=== PATIENT | male | born 1985 | race Two or more races ===

== ENCOUNTER 2024-02-09 14:35 | Outpatient (AMB) | payer OTHER, SELFPAY ==
--- NOTE | 2024-02-09 14:48 | MHC.PC.OV ---
Vital Signs 02/09/24 14:56 Height 5 ft 10 in Weight 172 lb BMI 24.7 BP 122/74 Blood Pressure Location Rt brachial Position Sitting Pulse 71 Pulse Source Pulse Oximeter Pulse Oximetry (%) 98 Intake Visit Reasons: ANNUAL PE Intake Note: pt is here for PE Motion Picture Narrator Required: No Allergies acetaminophen [From Tylenol] Allergy (Mild, Verified 02/09/24 14:57) Rash aspirin [ASA] Allergy (Unknown, Verified 02/09/24 14:57) SWELLING Penicillins [PENICILLINS] Allergy (Unknown, Verified 02/09/24 14:57) SWELLING enviromental allergies Allergy (Unknown, Uncoded 02/09/24 14:51) Unknown Medication List - [facility] Known Home Meds Tobacco use date assessed: 02/09/24 Dental Screening Dental Screen Date: 02/09/24 Did you have a dental visit in the last 12 months?: Yes Did you have a dental problem in the last 6 months where you did not have access to dental care?: No Was dental information given to patient?: Patient has dentist HPI ANNUAL PE HPI Details History of Present Illness Pt is here for PE. In addition, the patient reported issues with cerumen impaction in the right ear. He attempted to remove the earwax himself using water irrigation but felt discomfort and encountered difficulties in cleaning the ear effectively. The patient expressed interest in having the ear professionally irrigated and understood that there might be additional costs involved. Health Maintenance - Advised against smoking cigarettes. Social History Review of Systems - Ears: Reports difficulty with earwax impaction. denies any cp, sob, n/v, fevers, chills, numbness tingling, blood in stool, constipation/diarrhea Physical Exam General: Cooperative, healthy appearing, comfortable, no acute distress and well developed Orientation: Patient oriented x3 Limitations: No limitations Head: Normal to inspection Ears: Hearing grossly normal bilaterally, but wax in the right ear canal noted Nose: Normal external nose present Face and sinus: Normal facial exam Eyes: Appearance normal, both eyes and all related structures Neck: Normal visual inspection and Yes full ROM Respiratory: Normal respiratory effort and able to speak in complete sentences. Clear to auscultation bilaterally Cardiovascular: Regular rate and rhythm. Normal S1 and S2 GI: Normal to inspection. Soft to palpation and nontender Skin: No rashes or lesions noted Neuro: Patient oriented x3 Extremities: Normal to inspection Results Plan Cerumen Impaction: - Plan to irrigate the right ear was discussed and agreed upon with possible [id number] costs. The patient consented to ear irrigation. Pt tolerated this procedure well, ear cancal clear from cerumen after procedure. Patient was informed and verbally consented to the use of an ambient scribe for clinic note documentation during this visit. Discussion Notes For the cerumen impaction, I explained the procedure of ear irrigation and potential cost implications. I informed the patient of possible sensations during the procedure, such as water pressing into the ear, fullness, or dizziness. The patient was willing to proceed with ear irrigation. Patient Instructions - Proceed with the professional irrigation of the right ear as discussed. [facility] Surgical History No pertinent past surgical history Family History Mother Heart disease Father No problems noted. Social History Housing: House Alcohol intake: current Alcohol intake frequency: a few times a week Alcohol type: hard liquor Patient Tobacco Use Status: Never used Tobacco e-Cigarette/Vaping Use: Never Used Substance Use Type: Marijuana service: No Current occupational status: employed Current occupation: [employer] Current occupational exposures/hazards: No Cognitive needs: No Hearing needs: No Vision needs: No Questionnaire PHQ-9 Over the last 2 weeks, how often have you been bothered by any of the following problems? 1. Little interest or pleasure in doing things: several days 2. Feeling down, depressed, or hopeless: several days 3. Trouble falling or staying asleep, or sleeping too much: not at all 4. Feeling tired or having little energy: several days 5. Poor appetite or overeating: not at all 6. Feeling bad about yourself - or that you are a failure or have let yourself or your family down: not at all 7. Trouble concentrating on things, such as reading the newspaper or watching television: not at all 8. Moving or speaking so slowly that other people could have noticed. Or the opposite - being so fidgety or restless that you have been moving around a lot more than usual: not at all 9. Thoughts that you would be better off or of hurting yourself in some way: not at all Total score: 3 Depression Screening Interpretation: Negative Depression Screening Done: Yes 18166 - PHQ-9 Billing: Yes Source: Developed by Drs. Angel Chance, Michelle Ayala, Marin Rogers and colleagues, with an educational ivan from [employer]. Thrive Questionnaire Date Thrive assessed: 02/09/24 I am a: Patient What is your living situation today?: I have a steady place to live Within the past 12 months, did the food you bought not last and you didn't have the money to get more?: Never true Within the past 12 months, did you worry whether your food would run out before you got money to buy more?: Never true Do you have trouble paying for medicines?: No Do you have trouble getting transportation to medical appointments?: No Do you have trouble paying your heating and electricity bill?: No Do you have trouble taking care of your child, family member or friend?: No Do you have trouble with day-to-day activities such as bathing, preparing meals, shopping, managing finances, etc.?: No Are you currently unemployed and looking for a job?: No Are you interested in more education?: No Please select the resources that you would like help with: None Currently or been in a relationship where the following occur: No concerns reported THRIVE Score: 0 AUDIT C Alcohol Use Questionnaire (AUDIT-C) 1. How often do you have a drink containing alcohol?: 2-4 times a month 2. How many drinks containing alcohol do you have on a typical day when you are drinking?: 1 or 2 3. How often do you have six or more drinks on one occasion?: Never Total Score: 2 Score Reviewed/Action Taken: Yes SHANNON-7 AMB Questionnaire SHANNON-7 Date SHANNON - 7 assessed: 02/09/24 Feeling nervous, anxious, or on edge: 1 = Several days Not being able to stop or control worryin = Several days Worrying too much about different things: 1 = Several days Trouble relaxin = More than half the days Being so restless that it is hard to sit still: 0 = Not at all Becoming easily annoyed or irritable: 0 = Not at all Feeling afraid as if something awful might happen: 0 = Not at all Total SAHNNON-7 score (0-4 normal; 5-9 mild; 10-14 moderate; 15-21 severe): 5 Source: Developed by Drs. Angel Chance, Michelle Ayala, Marin Rogers and colleagues, with an educational ivan from [employer]. SHANNON-7 Assessment Billing SHANNON-7 Assessment Tool: SHANNON-7 Assessment 65767 Physical exam (Primary Care) Vital Signs: Last Vital Signs Pulse 71 02/09/24 14:56 BP 122/74 02/09/24 14:56 Pulse Ox 98 02/09/24 14:56 BMI result Body Mass Index 24.7 Tobacco/Smoking Status: Tobacco use Status Tobacco use date assessed 02/09/24 02/09/24 14:52 Patient Tobacco Use Status Never used Tobacco 02/09/24 14:58 e-Cigarette/Vaping Use Never Used 02/09/24 14:58 PHQ-9: PHQ-9 Score PHQ-9: Total score 3 02/09/24 15:00 Depression Screening Interpretation: Negative Thrive Assessment: Date of Thrive Assessment Date Thrive assessed 02/09/24 02/09/24 14:52 Currently or been in a relationship where the following occur: No concerns reported Office Procedures Cerumen Removal From which ear canal was the cerumen removed: right Removal: irrigation Notes: patient tolerated procedure well, no complications and ear canal clear 00175-Qnr Irrigation/Lavage Coding Level of Care Code Est Pt Prev Care 40-64y(74379) Diagnoses Physical exam Z00.00 CPT Codes Office Procedure - CPT: 09411-Pxj Irrigation/Lavage ([id number]) Additional Codes SHANNON-7 Assessment Billing - SHANNON-7 Assessment Tool: SHANNON-7 Assessment 93200 ([id number]) PHQ-9 - 78443 - PHQ-9 Billing: Yes ([id number]) Assessment & Plan Assessment & Plan (1) Physical exam: Code(s): Z00.00 - Encounter for general adult medical examination without abnormal findings Category: Medical Plan . Orders: Orders Comprehensive [place]. Panel Fast Today Z00.00 - Encounter for general adult medical examination without abnormal findings Complete Blood Count Auto Diff Today Z00.00 - Encounter for general adult medical examination without abnormal findings TSH reflex Free T4 Today Z00.00 - Encounter for general adult medical examination without abnormal findings UA CC w/rflx Micro + Cult Today Z00.00 - Encounter for general adult medical examination without abnormal findings Lipid Panel Today Z00.00 - Encounter for general adult medical examination without abnormal findings
[2024-02-09 14:56] VITALS: BP 122/74; PULSE 71; O2SAT 98; BMI 24.7
== END 2024-02-09 16:05 | disposition home or self-care (01) ==
PROVIDERS: PCP Nurse Practitioner Family; Visit Provider Nurse Practitioner Family
DX: Z00.00 Encounter for general adult medical examination without abnormal findings (principal); H61.21 Impacted cerumen, right ear

== ENCOUNTER → 2024-02-09 14:35 | Outpatient (BNVA) | payer OTHER, SELFPAY | PROVIDERS: PCP Nurse Practitioner Family; Visit Provider Nurse Practitioner Family | DX: Z00.01 Encounter for general adult medical examination with abnormal findings (principal); H61.21 Impacted cerumen, right ear | CPT/HCPCS: 69209; 96127; 99396 ==